=== PATIENT | female | born 1965 | race Caucasian/White ===

== ENCOUNTER → 2017-10-10 | Outpatient (CLI) | payer OTHER ==
[~2017-10-10] MED LIST: ALDACTONE50 M1 PO; ANAPROX DS550 MG PO; ANTIVERT25 MG PO; BLOOD PRESSURE MED; CONTRAVE1 TER PO; DAYPRO600 M1 PO; DILTIAZEM240 M1 PO; FLONASE0.05 MG/AC NS; HCTZ PO; LISINOPRIL10 M1 PO; MOTRIN,RUFEN800 MG PO; MOTRIN800 MG PO; NAPROSYN500 MG PO; Orphenadrine C100 MG PO; PARAFON FORTE500 MG PO; PROTONIX40 MG PO; QUINAPRIL PO; SOMA350 MG PO; TOPAMAX50 MG PO; TRAMADOL50 MG PO; ULTRAM50 MG PO; VICODIN 5/500 505 MG PO; Zofran4 MG PO
== END | disposition home or self-care (01) ==
LOC: RESCLI 02:59
DX: R07.9 Chest pain, unspecified (principal); I10 Essential (primary) hypertension; F41.9 Anxiety disorder, unspecified; E66.01 Morbid (severe) obesity due to excess calories; Z87.891 Personal history of nicotine dependence; Z88.6 Allergy status to analgesic agent

== ENCOUNTER → 2017-10-21 | Outpatient (CLI) | payer OTHER ==
[2017-10-21 07:40] LABS: BASO # 0.1 10*3/uL (0.0-0.1); BASO % 0.8 % (0.0-1.0); EOS # 0.2 10*3/uL (0.0-0.4); EOS % 2.2 % (1.0-4.0); HEMATOCRIT 38.8 % (37.0-47.0); HEMOGLOBIN 12.7 g/dl (12.0-16.0); LYMPH # 2.7 10*3/uL (1.3-4.4); MEAN CELL VOLUME 92.4 fl (81.0-99.0); MEAN CORPUSCULAR HGB 30.2 pg (27.0-31.0); MEAN CORPUSCULAR HGB CONC 32.7 g/dl (33.0-37.0); MEAN PLATELET VOLUME 9.3 fl (9.6-12.3); MONO # 0.3 10*3/uL (0.1-1.0); MONO % 4.1 % (3.0-9.0); NEUT # 4.4 10*3/uL (2.3-7.9); NEUT % 57.4 % (47.0-73.0); PLATELET COUNT AUTOMATED 311 10*3/uL (130-400); WHITE BLOOD COUNT 7.6 10*3/uL (4.8-10.8)
[2017-10-21 08:18] LABS: ALBUMIN 3.7 gm/dl (3.1-4.5); BUN 13 mg/dl (7-24); CHLORIDE 108 mmol/L (98-107); CHOLESTEROL 173 mg/dL (<200); CREATININE 0.89 mg/dL (0.55-1.02); HDL CHOLESTEROL 59 mg/dl (40-60); POTASSIUM 3.9 mmol/L (3.5-5.1); SGOT/AST 13 IU/L (3-35); SGPT/ALT 26 U/L (12-78); SODIUM 140 mmol/L (136-145); TOTAL PROTEIN 7.5 gm/dL (6.4-8.2)
[2017-10-21 08:26] LABS: ALKALINE PHOSPHATASE 110 U/L (45-117); LDL CHOLESTEROL 101 mg/dL (9-159); TRIGLYCERIDES 67 mg/dl (<150); VLDL CHOLESTEROL 13 mg/dL (6-40)
[2017-10-21 09:36] LABS: VITAMIN D, 25-HYDROXY 19.1 ng/mL (30-100)
== END | disposition home or self-care (01) ==
LOC: LAB 07:18
PROVIDERS: Internal Medicine
DX: Z00.01 Encounter for general adult medical examination with abnormal findings (principal); R79.89 Other specified abnormal findings of blood chemistry

== ENCOUNTER → 2017-10-24 | Outpatient (CLI) | payer OTHER | END | disposition home or self-care (01) | LOC: RESCLI 02:13 | DX: I10 Essential (primary) hypertension (principal); F41.9 Anxiety disorder, unspecified; E66.01 Morbid (severe) obesity due to excess calories; E55.9 Vitamin D deficiency, unspecified; Z88.6 Allergy status to analgesic agent; Z87.891 Personal history of nicotine dependence ==

== ENCOUNTER → 2017-12-21 | Outpatient (CLI) | payer OTHER | END | disposition home or self-care (01) | LOC: RESCLI 08:55 | DX: I10 Essential (primary) hypertension (principal); J00 Acute nasopharyngitis [common cold]; J34.89 Other specified disorders of nose and nasal sinuses; R52 Pain, unspecified; F41.9 Anxiety disorder, unspecified; E66.01 Morbid (severe) obesity due to excess calories; E55.9 Vitamin D deficiency, unspecified ==

== ENCOUNTER → 2018-02-07 | Outpatient (CLI) | payer OTHER | END | disposition home or self-care (01) | LOC: RESCLI 01:49 | DX: I10 Essential (primary) hypertension (principal); M25.561 Pain in right knee; M25.562 Pain in left knee; G89.29 Other chronic pain; R60.0 Localized edema; F41.9 Anxiety disorder, unspecified; E55.9 Vitamin D deficiency, unspecified; E66.01 Morbid (severe) obesity due to excess calories; Z68.41 Body mass index [BMI] 40.0-44.9, adult ==

== ENCOUNTER → 2018-07-07 | Outpatient (CLI) | payer OTHER ==
[~2018-07-07] MED LIST changes: +COCONUT OIL1000 MG PO; +HEMP OIL SL; -LISINOPRIL10 M1 PO; +LISINOPRIL20 MG PO
== END | disposition home or self-care (01) ==
LOC: RESCLI 01:47
DX: I10 Essential (primary) hypertension (principal); M25.561 Pain in right knee; M25.562 Pain in left knee; G89.29 Other chronic pain; R60.0 Localized edema; F41.9 Anxiety disorder, unspecified; E55.9 Vitamin D deficiency, unspecified; E66.01 Morbid (severe) obesity due to excess calories; Z68.41 Body mass index [BMI] 40.0-44.9, adult; Z79.899 Other long term (current) drug therapy; Z87.891 Personal history of nicotine dependence; Z88.8 Allergy status to other drugs, medicaments and biological substances

== ENCOUNTER → 2025-08-02 | Outpatient (CLI) | payer OTHER | END | disposition home or self-care (01) | LOC: ORTHO 09:16 | PROVIDERS: ATTEND Orthopaedic Surgery | DX: M17.11 Unilateral primary osteoarthritis, right knee (principal); M25.461 Effusion, right knee; M25.561 Pain in right knee ==